=== PATIENT | male | born 1990 | race Asian ===

== ENCOUNTER 2024-08-27 16:34 | Emergency (ER) | payer OTHER, SELFPAY ==
[2024-08-27 16:41] VITALS: BP 176/102
[2024-08-27 17:04] LABS: % Basophils 0.9 % (0-2); % Eosinophils 3.5 % (0-6); % Immature Granulocytes 0.4 % (0-0.5); % Lymphocytes 30.6 % (20.5-51.1); % Monocytes 4.6 % (1.7-9.3); Absolute Basophils 0.1 10^3/uL (0-0.2); Absolute Eosinophils 0.3 10^3/uL (0-0.7); Absolute Lymphocytes 2.8 10^3/uL (1.2-3.4); Absolute Monocytes 0.4 10^3/uL (0.1-0.6); Absolute Neutrophils 5.4 10^3/uL (1.4-6.5); Hematocrit 46.8 % (39.0-52.0); Hemoglobin 16.4 g/dL (13.0-18.0); Mean Corpuscular Hgb 30.3 pg (27.0-31.0); Mean Corpuscular Volume 86.3 fL (80.0-94.0); Mean Platelet Volume 9.6 fL (7.4-10.4); Nucleated Red Blood Cells % 0 % (-); Platelet Count 245 10^3/uL (130-400); Red Blood Cell Count 5.42 10^6/uL (4.70-6.10); Red Cell Dist. Width 11.8 % (11.5-14.5); White Blood Cell Count 9.1 10^3/uL (4.8-10.8)
[2024-08-27 17:25] LABS: ALT (SGPT) 41 U/L (0-50); AST (SGOT) 37 U/L (17-59); Alkaline Phosphatase 67 U/L (38-126); Blood Urea Nitrogen 18 mg/dl (9-20); Calcium 9.6 mg/dl (8.4-10.2); Carbon Dioxide 26 mmol/L (22-30); Chloride 100 mmol/L (98-107); Glucose 105 mg/dl (70-99); Potassium 3.9 mmol/L (3.5-5.1); Sodium 142 mmol/L (135-145); Total Bilirubin 0.4 mg/dl (0.2-1.3); Total Protein 7.5 g/dl (6.3-8.2); eGFR > 60.00
[2024-08-27 17:35] LABS: Troponin I < 0.012 ng/ml
[2024-08-27 19:08] VITALS: BP 135/87
--- NOTE | 2024-08-27 19:29 | ED.GENMED ---
History of Present Illness
General
Chief Complaint: Heart Rate Problem
Source: patient
Time Seen by Provider: 08/27/24 19:04
History of Present Illness
History of Present Illness:
33-year-old male presents emergency room complaining of palpitations. Patient states that he feels episodes where he has a 'adrenaline turpin' and feels like his heart pauses for a second. He does note that he has extra beats at times. No actual
syncope. No shortness of breath. No limitations in his activities of daily living. Patient endorses significant caffeine use. He also recreationally uses marijuana. He denies any other drug use. He does not take any prescription medication.
He does take a number of supplements.
Phy Exam
Physical Exam
Physical Exam:
General: Awake, Alert, Oriented X3. No acute distress.
Vitals: unremarkable
Head: Atraumatic
Eyes: Pupils equal, EOMI
Throat: Airway intact, no exudates
Neck: Trachea midline
Lungs: Clear and equal b/l
Heart: Regular rate, no murmurs
Abd: Soft, Nontender, No pulsatile mass
Neuro: Nonfocal
Skin: Warm, dry, no rash
Extremities: pulses equal b/l, no edema
Course
Orders/Labs/Results
Orders:
Orders
08/27/24 16:35
Electrocardiogram (*1) Urgent
Reason for Study: Palpitations
EKG- Treatment ONCE
08/27/24 16:51
Complete Blood Count/With Diff Urgent
Comprehensive Metabolic Panel Urgent
Free T4 Urgent
TSH Reflex To Free T4 Urgent
Comment: ADDON
Troponin I Urgent
08/27/24 19:21
Add On- LAB Urgent
Tests Added?: tsh reflext t4
Abnormal Lab Results
08/27/24
16:51
Glucose 105 H mg/dl
(70-99)
TSH (Reflex) 6.45 H uIU/ml
(0.47-4.68)
08/27/24 16:51
08/27/24 16:51
Vital Signs
Initial and Last Documented VS:
Initial Vital Signs
Temp Pulse Resp BP Pulse Ox
98.5 F 73 18 176/102 98
08/27/24 16:41 08/27/24 16:41 08/27/24 16:41 08/27/24 16:41 08/27/24 16:41
Last Documented Vital Signs
Temp Pulse Resp BP Pulse Ox
98.5 F 68 20 128/76 96
08/27/24 16:41 08/27/24 22:00 08/27/24 22:00 08/27/24 22:00 08/27/24 22:00
MDM/Problems Addressed
Differential Diagnosis Includes:
PVCs, PACs, anxiety, SVT
MDM/Problems Addressed:
Labs unremarkable. Patient observed on hospital monitor with no significant dysrhythmia noted. Recommend follow-up with primary care provider as an outpatient.
*Pulse Oximetry
Patient hypoxic: no
*EKG
Interpreted by ED Provider?: Yes
Heart Rate: 77
Rate: normal
Rhythm: sinus
[place]: normal axis
Interval: normal interval
QRS Pattern: normal QRS
Ischemia: no ischemia
*[employer] Interpretation
Rate: normal
Interpretation: normal
Rhythm: sinus
*Critical Care Note
Total Time (30-74mins, 75-104mins- exclusive of procedures): Not Applicable
ED Attending Note
-
Portions of this chart may have been created with voice recognition software.� Occasional wrong word or��sound alike� substitutions may have occurred due to the inherent limitations of voice recognition software.
Discharge Plan
Departure
Patient Disposition: Home (Routine Discharge)
Date of Disposition: 08/27/24
Time of Disposition: 21:54
Patient with high blood pressure during this ER visit?: No
Condition: Good
Discharge Problem:
Heart palpitations
Instructions: Palpitations (DC)
Referrals:
Charles Evans MD [Active] -
UNKNOWN - PT DOES,NOT KNOW [Family Provider] -
Interventions
Interventions:
*Risk Screen - Suicide Last Done: 08/27/24 16:41
*General Assessment Last Done: 08/27/24 16:41
*Neglect/Abuse Screening Last Done: 08/27/24 16:41
ED- Fall Risk Assessment Last Done: 08/27/24 19:18
*ED COVID-19 Vaccine History Last Done: 08/27/24 16:41
*Nursing Disposition Last Done: 08/27/24 22:22
ED- Cardiac Assessment Last Done: 08/27/24 19:18
ED- Pulmonary Assessment Last Done: 08/27/24 19:18
Discharge Date and Time
Discharge Date/Time: 08/27/24 22:22
Print Language: BAHAMIAN
[2024-08-27 20:00] VITALS: BP 132/79
[2024-08-27 20:30] LABS: TSH Reflex To Free T4 6.45 uIU/ml (0.47-4.68)
[2024-08-27 21:00] VITALS: BP 132/76
[2024-08-27 21:41] LABS: Free T4 0.89 ng/dl (0.78-2.19)
[2024-08-27 22:00] VITALS: BP 128/76
== END 2024-08-27 22:22 | disposition home or self-care (01) ==
LOC: EMR 16:34
PROVIDERS: Emergency Medicine; EMERGENCY PHYSICIAN Emergency Medicine
DX: R00.2 Palpitations (principal)
CPT/HCPCS: 99283; 80053; 84439; 84443; 84484; 85025; 93005